=== PATIENT | female | born 1990 | race Caucasian/White ===

== ENCOUNTER 2016-08-08 12:55 | Emergency (ER) | payer MEDICAID ==
[~2016-08-08] VITALS: Wt 43.5 kg
--- NOTE | 2016-08-08 14:37 | ERD ---
ER Documentation Chief Complaint Date/Time DATE: 08/08/16 TIME: 14:35 Chief Complaint Nausea HPI 26-year-old female presents emergency department with nausea and vomiting for the past 3 weeks. Patient states that she has up to 1-2 episodes of nonbloody nonbilious emesis each day. She reports that she gets a double shot for her contraceptive method. Patient states that she did have unprotected intercourse however she took Plan B from. She has had multiple tests at a clinic done and they were negative. She states that her last menstrual period was July 06, 2016. Patient denies abdominal pain, fevers, diarrhea. She denies pelvic pain, vaginal bleeding, vaginal discharge. Patient denies headaches, dizziness , blurred vision. ROS All systems reviewed and are negative except as per history of present illness. Medications Home Meds Active Scripts Nitrofurantoin Monohyd Macrocr* (Macrobid*) 100 Mg Capsr, 100 MG PO BID for 7 Days, CAP Prov:STARR DEL CASTILLO PA-C 08/08/16 Ondansetron (Ondansetron Odt) 4 Mg Tab.rapdis, 4 MG PO Q6H Y for NAUSEA AND/OR VOMITING, #10 TAB Prov:STARR DEL CASTILLO PA-C 08/08/16 PMhx/Soc Medical and Surgical Hx: pt denies Medical Hx, pt denies Surgical Hx Hx Alcohol Use: No Hx Substance Use: No Hx Tobacco Use: No Physical Exam Vitals Vital Signs Date Time Temp Pulse Resp B/P Pulse Ox O2 Delivery O2 Flow Rate FiO2 08/08/16 12:57 99.1 82 20 130/82 99 Physical Exam General: Well-developed, well-nourished. The patient appears in no acute distress. HEENT: Head is normocephalic, atraumatic. No scleral icterus. Neck: Supple. Nontender. Lungs: Clear to auscultation. Normal air movement. Heart: Regular rate and rhythm. S1 and S2 are normal. No murmurs, gallops, or rubs. Abdomen: Soft, nontender, nondistended. Bowel sounds are normoactive. Extremities: No clubbing or cyanosis. Normal pulses. Moving extremities x 4. No weakness. Neurologic: Alert and oriented 3. No focal deficits. Skin: Normal turgor. No rash or lesions. Result Diagram: 08/08/16 1440 08/08/16 1440 Results 24 hrs Laboratory Tests Test 08/08/16 14:40 White Blood Count 6.610^3/ul Red Blood Count 4.5410^6/ul Hemoglobin 12.4g/dl Hematocrit 37.5% Mean Corpuscular Volume 82.6fl Mean Corpuscular Hemoglobin 27.3pg Mean Corpuscular Hemoglobin Concent 33.1g/dl Red Cell Distribution Width 15.6% Platelet Count 13202^3/UL Mean Platelet Volume 10.7fl Neutrophils % 64.2% Lymphocytes % 26.7% Monocytes % 5.8% Eosinophils % 2.6% Basophils % 0.5% Nucleated Red Blood Cells % 0.0/100WBC Neutrophils # 4.310^3/ul Lymphocytes # 1.810^3/ul Monocytes # 0.410^3/ul Eosinophils # 0.210^3/ul Basophils # 0.010^3/ul Nucleated Red Blood Cells # 0.010^3/ul Urine Color LT. YELLOW Urine Clarity CLEAR Urine pH 6.5 Urine Specific [place] 1.010 Urine Ketones NEGATIVE Urine Nitrite NEGATIVE Urine Bilirubin NEGATIVE Urine Urobilinogen 0.2 E.U./dL Urine Leukocyte Esterase TRACE Urine Microscopic RBC 2-5/HPF Urine Microscopic WBC 2-5/HPF Urine Epithelial Cells OCCASIONAL Urine Hemoglobin TRACE Urine Glucose NEGATIVE% Urine Total Protein NEGATIVE Sodium Level 147mmol/L Potassium Level 3.5mmol/L Chloride Level 110mmol/L Carbon Dioxide Level 25mmol/L Anion Gap 16 Blood Urea Nitrogen 12mg/dl Creatinine 0.63mg/dl Glucose Level 98mg/dl Calcium Level 9.3mg/dl Total Bilirubin 0.2mg/dl Direct Bilirubin 0.00mg/dl Indirect Bilirubin 0.2mg/dl Aspartate Amino Transf (AST/SGOT) 23IU/L Alanine Aminotransferase (ALT/SGPT) 31IU/L Alkaline Phosphatase 44IU/L Total Protein 8.0g/dl Albumin 5.1g/dl Globulin 2.90g/dl Albumin/Globulin Ratio 1.75 Lipase 272U/L Beta HCG, Quantitative < 2.4mIU/ml Procedures/[facility] 26-year-old female comes in with nausea for the past several weeks. Patient's electrolytes are normal, no leukocytosis, CMP is unremarkable. Urine shows mild urinary tract infection. She was concerned of a possible , hCG is less than 2.4. She may recheck her urine in 3-4 days at home or with her primary care doctor. Clinically she does not show any signs of acute or abdominal process, no transaminitis, pancreatitis. She does report reports that nausea occurs almost daily, with vomiting, she will be given Zofran as well as needed for nausea. Departure Diagnosis: Primary Impression: Mild nausea Additional Impression: UTI (urinary tract infection) Condition: Good STARR DEL CASTILLO PA-C Aug 08, 2016 14:37
[2016-08-08 14:52] LABS: ADD SCAN DIFF NO
[2016-08-08 14:56] LABS: BASOPHILS % 0.5 % (0.0-2.0); EOSINOPHILS # 0.2 10^3/ul (0.0-0.5); EOSINOPHILS % 2.6 % (0.0-7.0); HEMATOCRIT 37.5 % (37.0-47.0); HEMOGLOBIN 12.4 g/dl (12.0-16.0); LYMPHOCYTES # 1.8 10^3/ul (0.8-2.9); LYMPHOCYTES % 26.7 % (15.0-51.0); MEAN CORPUSCULAR HEMOGLOBIN 27.3 pg (29.0-33.0); MEAN CORPUSCULAR HGB CONC 33.1 g/dl (32.0-37.0); MEAN CORPUSCULAR VOLUME 82.6 fl (82.0-101.0); MEAN PLATELET VOLUME 10.7 fl (7.4-10.4); MONOCYTE # 0.4 10^3/ul (0.3-0.9); MONOCYTES % 5.8 % (0.0-11.0); NEUTROPHIL # 4.3 10^3/ul (1.6-7.5); NEUTROPHILS % 64.2 % (39.0-77.0); PLATELET COUNT 288 10^3/UL (140-415); RED BLOOD COUNT 4.54 10^6/ul (4.20-5.40); RED CELL DISTRIBUTION WIDTH 15.6 % (11.5-14.5); WHITE BLOOD COUNT 6.6 10^3/ul (4.8-10.8)
[2016-08-08 15:14] LABS: ADD UMIC YES; ALBUMIN 5.1 g/dl (3.3-4.9); ALBUMIN/GLOBULIN RATIO 1.75; BILIRUBIN,INDIRECT 0.2 mg/dl (0-1.1); BILIRUBIN,TOTAL 0.2 mg/dl (0.2-1.3); CALCIUM 9.3 mg/dl (8.4-10.2); CREATININE 0.63 mg/dl (0.44-1.00); POTASSIUM 3.5 mmol/L (3.5-5.1); UR BILIRUBIN (Dip) NEGATIVE (NEGATIVE); UR BLOOD (Dip) TRACE (NEGATIVE); UR CLARITY CLEAR (CLEAR); UR COLOR LT. YELLOW (YELLOW); UR GLUCOSE (Dip) NEGATIVE (NEGATIVE); UR KETONES (Dip) NEGATIVE (NEGATIVE); UR LEUKOCYTE ESTERASE (Dip) TRACE (NEGATIVE); UR NITRITE (Dip) NEGATIVE (NEGATIVE); UR TOTAL PROTEIN (Dip) NEGATIVE (NEGATIVE); UR UROBILINOGEN (Dip) 0.2 E.U./dL (0.1-1.0)
[2016-08-08] MEDS ORDERED: ONDA4TAB14 PO (15:53)
[2016-08-08] MEDS ORDERED: NITR-58 PO (15:53)
== END 2016-08-08 16:05 | disposition home or self-care (01) ==
LOC: FTE 12:55
DX: R11.0 Nausea (principal); N39.0 Urinary tract infection, site not specified
CPT/HCPCS: 80053; 81001; 83690; 84702; 85025; 99284